=== PATIENT | male | born 1995 | race Caucasian/White ===

== ENCOUNTER 2024-06-18 15:23 | Emergency (ER) | payer BC, OTHER ==
[~2024-06-18] VITALS: Ht 175.3 cm; Wt 65.8 kg
[2024-06-18 16:35] LABS: BASOPHILS % (AUTO) 0.4 % (0.0-2.0); EOSINOPHILS % (AUTO) 0.3 % (0.0-6.0); HEMATOCRIT 36 % (39-51); LYMPHOCYTES # (AUTO) 0.9 K/uL (0.8-4.8); LYMPHOCYTES % (AUTO) 7.8 % (20.0-44.0); MEAN CORPUSCULAR HEMOGLOBIN 30 PG (26.0-33.0); MEAN CORPUSCULAR HGB CONC 33 g/dl (31.0-36.0); MEAN CORPUSCULAR VOLUME 89 fL (80-96); MONOCYTES # (AUTO) 1.2 K/uL (0.1-1.30); MONOCYTES % (AUTO) 10.4 % (2.0-12.0); NEUTROPHILS # (AUTO) 9.1 K/uL (1.8-8.9); NEUTROPHILS % (AUTO) 81.1 % (43.0-81.0); PLATELET COUNT (AUTO) 212 K/uL (150-450); RED BLOOD CELL COUNT(AUTO) 4.05 MIL/uL (4.5-6.0); RED CELL DISTRIBUTION WIDTH 12.3 % (11.5-15.0); WHITE BLOOD COUNT (AUTO) 11.2 K/uL (4.3-11.0)
[2024-06-18 16:49] LABS: ALANINE AMINOTRANSFERASE 65 U/L (12-78); ALBUMIN 3.7 g/dL (3.4-5.0); ALKALINE PHOSPHATASE 62 U/L (46-116); ASPARTATE AMINOTRANSFERASE 67 U/L (15-37); BILIRUBIN,DIRECT 0.2 mg/dL (0.0-0.2); BILIRUBIN,TOTAL 0.9 mg/dL (0.2-1.0); CALCIUM, SERUM 8.9 mg/dL (8.5-10.1); CARBON DIOXIDE 28 mmol/L (21-32); CHLORIDE 102 mmol/L (98-107); CREATININE 1.1 mg/dL (0.6-1.3); GLUCOSE 106 mg/dL (74-106); POTASSIUM 3.5 mmol/L (3.5-5.1); SODIUM SERUM 138 mmol/L (136-145); TOTAL PROTEIN, SERUM 6.7 g/dL (6.4-8.2); UREA NITROGEN, BLOOD 13 mg/dL (7-18)
[2024-06-18 16:56] LABS: ACETAMINOPHEN <10 ug/ml (10-30); ALCOHOL, BLOOD < 10 mg/dL (0-10); SALICYLATE 1.8 mg/dL (2.8-20.0)
[2024-06-18 22:26] LABS: APPEARANCE,URINE CLEAR (CLEAR); BILIRUBIN,URINE NEGATIVE (NEGATIVE); BLOOD, URINE NEGATIVE Ery/uL (NEGATIVE); COLOR,URINE YELLOW (YELLOW); KETONES,URINE 1+ mg/dL (NEGATIVE); LEUKOCYTE ESTERASE ,URINE NEGATIVE (NEGATIVE); NITRITE, URINE NEGATIVE (NEGATIVE); PROTEIN,URINE TRACE mg/dl (NEGATIVE); UGLUCOSE NEGATIVE (NEGATIVE)
[2024-06-18 22:42] LABS: ADD URINE CULTURE NO; BACTERIA,URINE Rare /HPF (None Seen); RBC,URINE 0-2 /HPF (0-2); SQUAMOUS EPITHELIAL CELL,UR 0-2 /HPF (None Seen); WBC,URINE 0-2 /HPF (0-3)
[2024-06-18 22:49] LABS: AMPHETAMINE, URINE NEGATIVE (NEGATIVE); BARBITURATE, URINE NEGATIVE (NEGATIVE); BENZODIAZEPINE, URINE NEGATIVE (NEGATIVE); COCCAINE, URINE NEGATIVE (NEGATIVE); OPIATE, URINE NEGATIVE (NEGATIVE); PHENCYCLIDINE SCREEN,URINE NEGATIVE (NEGATIVE)
[2024-06-18 22:53] LABS: CANNABINOID, URINE POSITIVE (NEGATIVE)
[2024-06-19] MEDS ORDERED: QUETIAPINE FUMARATE 100 MG TABLET ONE (02:32)
[2024-06-19] MEDS: QUETIAPINE FUMARATE 100 MG TABLET PO SCH (02:38)
[2024-06-19 05:58] VITALS: BP 131/79; TEMP 98; O2SAT 98
== END 2024-06-19 05:59 | disposition home or self-care (01) ==
LOC: EDBD 15:26 → ER 15:26
DX: S00.33XA Contusion of nose, initial encounter (principal); R45.851 Suicidal ideations; R45.850 Homicidal ideations; F19.10 Other psychoactive substance abuse, uncomplicated; F31.9 Bipolar disorder, unspecified; F14.10 Cocaine abuse, uncomplicated; Z88.8 Allergy status to other drugs, medicaments and biological substances; Z59.00 Homelessness unspecified; Y04.0XXA Assault by unarmed brawl or fight, initial encounter; Y93.89 Activity, other specified; Y92.89 Other specified places as the place of occurrence of the external cause; Y99.8 Other external cause status
CPT/HCPCS: 36415; 70450-TC; 70486-TC; 80048-TC; 80076-TC; 81001; 85025-TC; G0480